=== PATIENT | female | born 1975 | race African-American/Black ===

== ENCOUNTER → 2023-09-29 14:02 | Outpatient (REF) | payer BC, SELFPAY | LOC: DHCBC HW 14:02 | PROVIDERS: ATTENDING PHYSICIAN Internal Medicine Cardiovascular Disease; FAMILY PHYSICIAN Family Medicine | DX: I10 Essential (primary) hypertension (principal) | CPT/HCPCS: 93306 ==

== ENCOUNTER 2023-10-22 06:40 | Observation (INO) | payer BC, SELFPAY ==
[2023-10-21 21:58] VITALS: BP 149/101
[2023-10-21 22:13] LABS: Glucose - Point of Care 80 mg/dl (70-99)
[2023-10-21 22:19] LABS: % Basophils 0.7 % (0-2); % Eosinophils 0.8 % (0-6); % Immature Granulocytes 0.3 % (0-0.5); % Lymphocytes 24.7 % (20.5-51.1); % Monocytes 7.7 % (1.7-9.3); % Neutrophils 65.8 % (42.2-75.2); Absolute Basophils 0.1 10^3/uL (0-0.2); Absolute Eosinophils 0.1 10^3/uL (0-0.7); Absolute Lymphocytes 1.8 10^3/uL (1.2-3.4); Absolute Monocytes 0.6 10^3/uL (0.1-0.6); Absolute Neutrophils 4.7 10^3/uL (1.4-6.5); Hematocrit 38.2 % (37.0-47.0); Mean Corpuscular Hgb 27.1 pg (27.0-31.0); Mean Corpuscular Volume 79.7 fL (81.0-99.0); Mean Platelet Volume 10.6 fL (7.4-10.4); Nucleated Red Blood Cells % 0 %; Platelet Count 538 10^3/uL (130-400); Red Blood Cell Count 4.79 10^6/uL (4.20-5.40); Red Cell Dist. Width 13.4 % (11.5-14.5); White Blood Cell Count 7.2 10^3/uL (4.8-10.8)
[2023-10-21 22:48] LABS: ALT (SGPT) 19 U/L (0-35); AST (SGOT) 22 U/L (14-36); Alkaline Phosphatase 109 U/L (38-126); Blood Urea Nitrogen 23 mg/dl (7-17); Calcium 10.2 mg/dl (8.4-10.2); Carbon Dioxide 23 mmol/L (22-30); Chloride 103 mmol/L (98-107); Glucose 82 mg/dl (70-99); Potassium 4.4 mmol/L (3.5-5.1); Sodium 137 mmol/L (135-145); Total Bilirubin 0.7 mg/dl (0.2-1.3); Total Protein 9.4 g/dl (6.3-8.2); Troponin I < 0.012 ng/ml; eGFR 31.77
[2023-10-22] VITALS (14 sets, daily range): BP systolic 143–168; BP diastolic 61–136; BMI 31.4
[2023-10-22] MEDS: ZOFRAN 4 MG IV (01:40)
--- NOTE | 2023-10-22 02:58 | ED.GENMED ---
History of Present Illness
General
Chief Complaint: Weakness
Source: patient and family
Exam Limitations: none
Time Seen by Provider: 10/22/23 02:43
Nursing documentation reviewed up to this point in time: agreed with
Travel History
Have you had any contact with someone who has COVID-19?: No
Do you have any symptoms of coronavirus? Fever > 100 degrees, chills, cough, shortness of breath, sore throat, loss of taste or smell, muscle aches, or headache?: No
History of Present Illness
History of Present Illness:
Pleasant 48-year-old female that presents with shaking and sweating for the last month. For the last 3 months patient has been unable to eat normally. She has had a 30 pound weight loss and renal insufficiency. Patient states that today she
developed shaking. Denies fever, chills, nausea or vomiting. Reports no chest pain or shortness of breath. She has been to GI who is in the midst of a workup. She has been to cardiology and had a normal stress test. She denies any other
symptoms.
Past History
Past History
ED Past Medical History: Asthma, HTN and Other (kidney stones)
ED Past Surgical History: Other (hysterectomy)
Patient has exhibited threatening behavior?: No
Social History
Tobacco: Non-smoker
Alcohol: None
Personal: Single
Living: with family
Employment: Not employed
Family History
Family History: Hypertension
Review of Systems
Review of Systems
Allergies reviewed?: Yes
Other source history: family
All Other Systems: ROS reviewed and negative except as documented in HPI and ROS
Constitutional: Reports fatigue
EENT: Reports no symptoms
Respiratory: Reports no symptoms
Cardiac: Reports no symptoms
ABD/GI: Reports no symptoms
: Reports no symptoms
Musculoskeletal: Reports no symptoms
Skin: Reports no symptoms
Neurological: Reports other (Shaking)
Endocrine: Reports no symptoms
Hematologic/Lymphatic: Reports no symptoms
Psychiatric: Reports anxiety
Phy Exam
General Physical Exam
General Presentation: well appearing and no apparent distress
General Skin: warm and dry
General Habitus: normal
General Mental: alert
General Hydration: appears well hydrated
ENT Exam
ENT Exam: EOMI, pharynx normal, neck supple and normocephalic
Eye Exam
Eye Exam: PERRL, cornea clear and conjunctiva normal
Cardiovascular Exam
Cardiovascular Exam: regular rate/rhythm, no edema, no murmur and normal peripheral pulses
Pulmonary Exam
Pulmonary Exam: lungs clear, no respiratory distress, no rales, no crackles, no rhonchi, no stridor, no wheezing and no cough
Gastrointestinal Exam
Gastrointestinal Exam: normal bowel sounds, non tender, soft, no organomegaly, no pulsatile mass and non distended
Neurological Exam
Neurological Exam: alert, oriented x3, no motor deficits and speech normal
Musculoskeletal Exam
Musculoskeletal Exam: full ROM and no edema
Skin Exam
Skin Exam: normal color, warm/dry, no rash and no petechia
Psychiatric Exam
Psychiatric Exam: anxious
Course
Orders/Labs/Results
Orders:
Orders
10/21/23 21:37
Electrocardiogram (*1) Urgent
Reason for Study: Chest Pain
EKG- Treatment ONCE
10/21/23 22:13
Complete Blood Count/With Diff Urgent
Comprehensive Metabolic Panel Urgent
Troponin I Urgent
10/22/23 01:39
Ondansetron Injectable [Zofran] 4 mg .ROUTE .STK-MED ONE
10/22/23 01:40
Ondansetron Injectable [Zofran] 4 mg IV NOW STA
10/22/23 02:56
Diphenhydramine [Benadryl] 50 mg PO NOW STA
10/22/23 03:00
0.9% Sodium Chloride 500 ml [Nss] 500 ml IV BOLUS
10/22/23 04:52
CT Head W/o Iv Contrast Urgent
Comment:
Reason For Exam: ams
10/22/23 Breakfast
Regular
At Your Request: Full Participation
10/22/23 06:22
Add On- LAB Routine
Tests Added?: vitamin B12, TSH
Admit/Transfer Patient As Directed
Co-Sign Provider:
Level of Care: Observation services
Assign to:: Telemetry
Physician / Group: Cristina Foster
Diagnosis: altered mental status, TAVIA
Reason for Telemetry: Chest Pain syndromes
Date to Stop Telemetry: 10/24/23
Time to Stop Telemetry: 11:00
10/22/23 06:23
Code Status As Directed
Resuscitation Status: Full Code
10/22/23 06:26
Add On- LAB Routine
Tests Added?: vitamin d-oh
10/22/23 06:49
0.9% Sodium Chloride 1000 ml [Nss] 1,000 ml IV 80 mls/hr
Acetaminophen [Tylenol] 650 mg PO Q4HPRN PRN
Polyethylene Glycol Powder [Miralax] 17 grams PO DAILYPRN PRN
10/22/23 06:49
Activity As Directed
Activity Level: As Tolerated
Neurological Checks As Directed
Frequency: Per unit guidelines
Pneumatic Compression Sleeves As Directed
Type: Knee high
Vital Signs As Directed
Frequency: Per unit guidelines
DX Deep Vein Thrombosis Video Routine
10/22/23 07:30
Sucralfate [Carafate] 1 gram PO ACHS
10/22/23 07:31
Basic Metabolic Panel Routine
Magnesium Routine
10/22/23 08:00
Bisacodyl [Dulcolax] 10 mg RECTAL [id number] PRN
Metoprolol [Lopressor] 25 mg PO BID
Pantoprazole [Protonix] 40 mg PO DAILY
Rosuvastatin Calcium [Crestor] 40 mg PO DAILY
10/22/23 22:00
Cetirizine HCl [Zyrtec] 10 mg PO HS
Clonidine [Catapres] 0.1 mg PO HS
10/23/23 07:15
Complete Blood Count/No Diff IN AM
10/24/23 11:00
DC Protocol for Telemetry ONCE
Abnormal Lab Results
10/21/23
22:13
MCV 79.7 L fL
(81.0-99.0)
Plt Count 538 H 10^3/uL
(130-400)
MPV 10.6 H fL
(7.4-10.4)
BUN 23 H mg/dl
(7-17)
Creatinine 1.9 H mg/dL
(0.6-1.0)
Total Protein 9.4 H g/dl
(6.3-8.2)
10/21/23 22:13
10/21/23 22:13
Vital Signs
Initial and Last Documented VS:
Initial Vital Signs
Temp Pulse Resp BP Pulse Ox
98.9 F 86 20 149/101 100
10/21/23 21:58 10/21/23 21:58 10/21/23 21:58 10/21/23 21:58 10/21/23 21:58
Last Documented Vital Signs
Temp Pulse Resp BP Pulse Ox
98.4 F 50 18 155/84 99
10/23/23 11:10 10/23/23 11:10 10/23/23 11:10 10/23/23 11:10 10/23/23 11:10
*Critical Care Note
Total Time (30-74mins, 75-104mins- exclusive of procedures): Not Applicable
Update Note
Update Note:
48-year-old female with what appears to be brief manic episode. She began to shake and form pressured speech. She eventually got 'tongue-tied' and stopped speaking. Patient reports recent weight loss. I do not feel that she is able to care for
herself at home in this current condition.
CT head negative for acute findings
ED Attending Note
-
Portions of this chart may have been created with voice recognition software.� Occasional wrong word or��sound alike� substitutions may have occurred due to the inherent limitations of voice recognition software.
Discharge Plan
Departure
Condition: Fair
Interventions
Interventions:
*Risk Screen - Suicide Last Done: 10/21/23 21:58
*General Assessment Last Done: 10/21/23 21:58
*Neglect/Abuse Screening Last Done: 10/21/23 21:58
ED- Fall Risk Assessment Last Done: 10/21/23 21:58
*ED COVID-19 Vaccine History Last Done: 10/21/23 21:58
*Nursing Disposition Last Done: 10/22/23 14:02
ED- Cardiac Assessment Last Done: 10/22/23 00:45
ED- Neurological Assessment Last Done: 10/22/23 00:45
ED- Pulmonary Assessment Last Done: 10/22/23 00:48
[2023-10-22] MEDS: BENADRYL 50 MG PO (03:02)
[2023-10-22] MEDS: NSS 500 IV (03:04)
--- NOTE | 2023-10-22 06:05 | HPS.HSE ---
Family Physician
-
Family Physician: Malinda Melgar
Chief Complaint
-
intermittent episodes of shaking
History of Present Illness
Ms. Carmen Delong is a 48 yo woman with hx HTN, asthma who presents to the ER with episodes of shaking. Patient states over the past two days she has had several brief episodes where 'I feel like I have extra energy in my body' and she has
uncontrollable shaking. She is conscious during these episodes, no falls. No fevers/chills. Denies increased warmth or flushing. Episodes haven't happened in past. No new medications. States she vapes daily otherwise no other drug use.
Patient has had a 30 pound weight loss over past month and has been eating less. She states she has no appetite. Denies abdominal pain. She is undergoing work-up with GI. She has had a normal stress test with cardiology.
No cough. No chest pain. No vomiting. No diarrhea. No rash. No LE swelling.
Medical History
Past Medical History
Past Medical History: Reports Other (HTN, asthma)
Past Surgical History: Reports None
Social History
Tobacco: Non-smoker
Alcohol: Occasional
Drug: Marijuana
Family History
Family History: Not pertinent
Allergies / Home Medications
Allergies reflects when Allergies were last updated in [facility].
Home Medications with original date entered in [facility]
Allergy/Medication List:
Allergies
Allergy/AdvReac Type Severity Reaction Status Date / Time
No Known Drug Allergies Allergy Unknown Unknown Verified 10/21/23 21:57
raw vegetable Allergy Tongue Verified 10/21/23 21:57
Swelling
Home Medications
hydrocodone 5 mg-acetaminophen 325 mg tablet 1 tab PO Q4HPRN PRN severe pain #8 tabs 12/08/17
amlodipine 5 mg tablet 5 mg PO DAILY 03/02/18
losartan 100 mg-hydrochlorothiazide 25 mg tablet 1 ea PO DAILY 08/22/18
metoprolol tartrate 25 mg tablet 25 mg PO BID 03/02/18
ofloxacin 0.3 % eye drops (Ocuflox) 10 ml RIGHT EYE QID ##1 01/11/21
fluconazole 150 mg tablet (Diflucan) 150 mg PO DAILY PRN yeast infection #1 tab 11/22/22
levofloxacin 750 mg tablet 750 mg PO DAILY #7 tabs 11/22/22
metronidazole 500 mg tablet 500 mg PO TID #21 tabs 11/22/22
cetirizine 10 mg PO HS 10/22/23
clonidine 0.1 mg PO HS 10/22/23
esomeprazole sodium 40 mg PO DAILY 10/22/23
hydrochlorothiazide 25 mg PO HS 10/22/23
losartan 100 mg PO DAILY 10/22/23
magnesium 250 mg PO HS 10/22/23
metoprolol tartrate 25 mg PO BID 10/22/23
rosuvastatin 60 mg PO DAILY 10/22/23
sucralfate 1 g PO DIRECTED 10/22/23
*med rec not confirmed
Review of Systems
-
History Source: Patient
A 12 point ROS was completed and negative except as noted: Yes
Physical Exam
Vital Signs
Vital Signs
Temp Pulse Resp BP Pulse Ox
98.9 F 74 17 153/97 91
10/21/23 21:58 10/22/23 04:30 10/22/23 04:30 10/22/23 04:00 10/22/23 04:17
Physical Exam
General: No Apparent Distress and Conversant
HEENT: PERRLA
Respiratory: Clear; No Wheezes
Cardiac: S1/S2 and Regular Rhythm
GI: Soft and Non Tender
Musculoskeletal: No Edema
Skin: Warm and Dry; No Rash
Neuro: AO x 3
Psych: Other (pressured speech, anxious )
Laboratory Results
-
10/21/23 22:13
10/21/23 22:13
Laboratory Results
Total Bilirubin 0.7 mg/dl (0.2-1.3) 10/21/23 22:13
AST 22 U/L (14-36) 10/21/23 22:13
ALT 19 U/L (0-35) 10/21/23 22:13
Alkaline Phosphatase 109 U/L (38-126) 10/21/23 22:13
Troponin I < 0.012 ng/ml 10/21/23 22:13
Data Reviewed
-
Diagnostic Radiology: Report Reviewed by me
Lab Data: Labs Reviewed by me
Impression/Plan
-
Ms. Carmen Delong is a 48 yo woman with hx HTN, asthma who presents to the ER with episodes of shaking.
Triage VS: T 98.9, P 86, RR 20, BP 149/101, SpO2 100%
LABS: WBC 7.2, Hg 13.0, PLT 538, Na 137, K+ 4.4, BUN 23, Cr 1.9, Glucose 82, T. Bili 0.7, AST 22, ALT [address]
MAR: IVF, Benadryl Zofran
Altered Mental Status
Episodic Shaking
Pressure speech
-unclear presentation, concern for manic episode with pressured speech and patient's description of events. She denies fevers or flushing. Story not suggestive of seizure (and witnessed by ER physician)
-will monitor on telemetry to rule out arrhythmia that may be leading to anxiety?
-F/U TSH, B12
-psychiatry consulted
HTN
-MILLER HEAD Metoprolol
-MILLER HEAD Clonidine - consider increasing dose
-hold MILLER HEAD Losartan
-hold MILLER HEAD HCTZ
Acute Kidney Injury
-hold MILLER HEAD Losartan
-additional 1L IVF NS @ 80
HLD
-MILLER HEAD Rosuvastatin - decreased to 40mg
Weight Loss
Decreased appetite
-MILLER HEAD PPI
-patient has follow up with GI next month
-she is ordered for a regular diet but if it is seen that she has poor PO intake may consider inpatient GI consult this admit
DVT PPx SCD
FULL CODE
[2023-10-22 07:30] LABS: Urine Albumin 2+ (Neg - Trace); Urine Bilirubin 1+ (Negative); Urine Character Clear (Clear); Urine Color Yellow; Urine Glucose Negative (Negative); Urine Ketone 1+ (Negative); Urine Leukocyte Trace (Negative); Urine Nitrite Negative (Negative); Urine Occult Blood Negative (Negative); Urine Specific Gravity 1.015 (<1.030); Urine Urobilinogen Negative (Neg - 1+)
[2023-10-22 07:39] LABS: Urine Squamous Cell >30 /LPF (Few)
[2023-10-22 07:40] LABS: Urine Red Blood Cell 0-2 /HPF (0-2); Urine White Cell 0-2 /HPF (0-5)
[2023-10-22 07:42] LABS: Urine Mucus Few
[2023-10-22 07:43] LABS: Urine Granular Cast 0-2 /LPF (0); Urine Hyaline Cast >15 /LPF (0-2)
[2023-10-22 07:58] LABS: Amphetamines Negative (Negative); Barbiturates Negative (Negative); Benzodiazepines Negative (Negative); Buprenorphine Negative (Negative); Cocaine Negative (Negative); Marijuana Positive (Negative); Methadone Negative (Negative); Methamphetamines Negative (Negative); Opiates Negative (Negative); Phencyclidine Negative (Negative); Tricyclic Antidepressants Negative (Negative)
[2023-10-22 08:13] LABS: Urine Bacteria Moderate (Negative)
[2023-10-22 08:15] LABS: Blood Urea Nitrogen 23 mg/dl (7-17); Calcium 9.5 mg/dl (8.4-10.2); Carbon Dioxide 18 mmol/L (22-30); Chloride 107 mmol/L (98-107); Estimated Creatinine Clearance 39 ml/min; Glucose 87 mg/dl (70-99); Potassium 4.4 mmol/L (3.5-5.1); Sodium 135 mmol/L (135-145)
[2023-10-22] MEDS: NSS 1000 IV (08:31)
[2023-10-22] MEDS: PROTONIX 40 MG PO (08:32)
[2023-10-22] MEDS: CRESTOR 40 MG PO (08:32)
[2023-10-22] MEDS: LOPRESSOR 25 MG PO ×2 (08:32→21:05)
[2023-10-22] MEDS: CARAFATE PO ×3 (08:33→22:06)
[2023-10-22 09:04] LABS: TSH 1.53 uIU/ml (0.47-4.68)
[2023-10-22 09:23] LABS: Vitamin B12 806 pg/ml (239-931)
--- NOTE | 2023-10-22 11:31 | CM ---
CM reviewed medical records. OBS letter given and explained
Patient confirmed demographics. Patient lives with independently. Patient denied history of VN, SNF or DME. Patient is active with her PCP. Patient uses [facility] for medication services.
Patient appeared anxious and exhibited pressured speech. Patient was difficult to direct, but remained pleasant and thankful for care she is receiving. CM will continue to remain available.
PLAN: Home no needs.
--- NOTE | 2023-10-22 11:47 | CON.MD ---
Consultation - Medical
-
patient seen chart reviewed. patient is a 48 year old woman who comes to with cc shaking, sweating decreased appetite and weight loss over the past several months. she is seeing her pcp dr hdz who has been pursuing a GI workup. the patient
was noted to be very talkative and the question raised as to whether she is bipolar. she admits she is an extremely energetic person who does not need to sleep very much. she can multitask and accomplish a lot in the course of some hours. she
denies racing thoughts however. she is not depressed. she has never been suicidal. she can enjoy her life. she has been treated in the past for anxiety and had some episodes of panic years ago rx with klonopin but she does not liken what she is
experiencing now to those episodes which have not recurred in years. she is an avid cook and the experience of no appetite is bizarre for her. she is overweight. she reports the 'shaking' she experienced felt like 'a seizure' although she did not
lose consciousness or continence. she did not bite her tongue. she said it occurred earlier today in the ER when she tried to get to the bathroom.
past psych hx see above
medical hx patient w hx thn migraine gerd benign breast lum 'axillary lumps' listed in external med summary 30 lb weight loss hx fibroids w pipe buffer surgery knee surgery bp 159/[address] no acute abn b12 tsh nl vit d low ecg w nl qtc
ketones bili elev in ua platelets high mcv sl dec bun 1.8 cr 23
family hx denied for psych and d and a but d has an undx illness that has caused her to need walker to walk and she is only 27 d also hypothyroid mother had guilherme lucas and had many neurosurgeries
substance abuse denied but noted tox scre + for cannabis
social patient is a retired [employer]. 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 she has three kids two grands supportive denies hx abuse loves to cook.
mse alert ox3 very loquacious rather pressured speech thought process was a bit curcumstantial no psychosis mood is euthymic affect appropriate never any hx si aver intelligence ins judgment seem ok
dx r/o bipolar but i don't see it as a cause of her sx and do not feel rx with meds necessary at present
recommendations. while patient presentation does seem to suggest possibly underlying bipolar i am in no way certain that she has bipolar disorder. she may just be one of those people who are very high energy multitask do not need a lot of sleep
etc. i don't see her as needing to medicate her energy at p resent. i do feel there is enough in the way of sx to suggest need for endocrine, collagen vascular disease workup. GI workup has it seems already begun. would consider neuro workup if
no other dx. d has some illness that seems to defy dx as well. psych will check in with her tomorrwo.
--- NOTE | 2023-10-22 13:29 | W.PN.UPDATE ---
Update Note
Progress Note Update
Non-billable addendum
48 y/o F admitted with TAVIA (but hx of CKD), also chronic weight loss, poor appetite, early satiety - being evaluated outpatient with GI planned scope next month. Recently saw Cardiology and negative stress.
Evaluated by psych for pressured speech, sweats - no concern from psych for bipolar d/o. Patient states this is her personality. Denies any drug use besides occasional MJ, no new pharmaceutical meds.
Assessment:
Altered Mental Status/Episodic Shaking/Pressure speech
- psych evaluated, no concern for bipolar disorder
- TSH, B12 ok
3 month history of weight loss, FTT
- poor appetite, early satiety
- if ok with renal, plan for CT C/A/P with IV contrast
- GI consulted given symptoms of heartburn as well
- reg diet, encourage intake
Essential HTN
- continue Clonidine/Metoprolol/Amlodipine
- hold HCTZ/Losartan
TAVIA on CKD stage 3b
- hold HCTZ/ARB
- continue IVF
- Nephrology evaluation
HLD - statin
DVT ppx: SCDs
Code: Full
[2023-10-22] MEDS: LR 1000 IV (14:46)
--- NOTE | 2023-10-22 15:27 | TRANSFER ---
Pt transferred from ED to 332 and walked from wheelchair to bed. IVF running at 100ml/hr. Pt oriented to room, call guillen within reach. Admission complete in ED. Assessment completed by this RN.
--- NOTE | 2023-10-22 15:58 | CON.GI ---
Addendum entered and electronically signed by Courtney Malone Do, MD 10/22/23 17:36:
I saw and examined the patient.
The INSURANCE SALES AGENT's note was reviewed and I agree with the note.
Comment: Carmen is a 48yo W with h/o asthma and HTN who presents with acute on chronic kidney injury in setting of poor PO intake. She also had 35lb wt loss with early satiety. Vitals stable, obese, NTTP, NABS. Labs reviewed without anemia Cr 1.9.
Imaging pending
Impression
- Unintentional wt loss and early satiety
Suspect hyperemesis cannabis, PUD or gastritis
- HTN
- Asthma
- Obesity
- CKD
Recommendations
- Agree with CTCAP
- PPI IV
- Counseled on cannabis cessation
- Agree with EGD/colon and await CT to decide inpatient vs outpatient basis
Will follow with you
Original Note:
Consultation
-
Date/Time Consultation Requested: 10/22/23 1425
Date/Time Consultation Performed: 10/22/23 1600
Requesting Provider: Argelia Lang MD
Performing Provider: KIRILL Hawthorne, Courtney Buck MD
Reason for Consultation: wt loss
Medical History
Chief Complaint / HPI
Chief Complaint: weight loss
History of Present Illness:
Pt is a 48yo with hx asthma, HTN, renal stones, prior diverticulitis with inability to eat normal and noted shakiness and sweats. She has had 37 lbs wt loss. Pt was noted weight of 100 kg in 11/2022 now 83 kg and also noted renal insufficiency.
On admission noted with WBC 7.2, hbg 13, hct 38.2, platelets 538, Na 135, K 4.4, Cl 107, Co2 18, BUN 23, Creat 1.8, glucose 87. Tox screen + Marijuana. Pt states she began with symptoms of wt loss about 3 months ago. She noted about 1-2 months
ago burning in abdomen. She did seen by PCP with higher dose Nexium added then DINA and Carafate ordered with plan for EGD in November. She then noted 2 episode of shakiness and sweats over last 2 weeks and presents for evaluation. No NSAID use.
Pt again admits to nausea, abdominal burning, wt loss 37 lbs, early satiety, shakiness, sweats. Some constipation but note eating less. but denies vomiting, hematemesis, diarrhea,or bleeding. No hx EGD possible colonoscopy years ago.
grandmother with stomach and colon CA.
Past Medical History
Past Medical History: Asthma, HTN and Other (kidney stones, diverticulitis 2022 )
Past Surgical History: Gynecological (hysterectomy)
Social History
Tobacco: Vaping (several years )
Alcohol: Occasional (only recently on [employer])
Drug: Marijuana (gummies to assist for sleep)
Personal:
Living: Alone
Employment: Disabled
Family History
Family History: Other (grandmother with stomach and colon CA)
Allergies / Home Medications
Allergy/AdvReac Type Severity Reaction Status Date / Time
No Known Drug Allergies Allergy Unknown Unknown Verified 10/21/23 21:57
raw vegetable Allergy Tongue Verified 10/21/23 21:57
Swelling
�Medication �Instructions �Recorded
amlodipine 5 mg tablet (Norvasc) 5 mg PO DAILY 10/22/23
cetirizine 10 mg tablet (Zyrtec) 10 mg PO QPM 10/22/23
clonidine HCl 0.1 mg tablet 0.1 mg PO HS 10/22/23
esomeprazole magnesium 40 mg 40 mg PO DAILY 10/22/23
capsule,delayed release (Nexium)
hydrochlorothiazide 25 mg tablet 25 mg PO QPM 10/22/23
losartan 100 mg tablet 100 mg PO DAILY 10/22/23
magnesium oxide 250 mg PO QPM 10/22/23
metoprolol tartrate 25 mg tablet 25 mg PO BID 10/22/23
rosuvastatin 10 mg tablet (Crestor) 10 mg PO QPM 10/22/23
sucralfate 1 gram tablet (Carafate) 1 g PO ACHS 10/22/23
Review of Systems
-
History Source: Patient and Family
Constitutional: Reports Weight Loss, Fatigue and Other (sweats )
EENT: Reports No Symptoms
Respiratory: Reports No Symptoms
Cardiac: Reports No Symptoms
Abdomen/GI: Reports Abdominal Pain, Nausea and Other (early satiety )
: Reports No Symptoms
Musculoskeletal: Reports No Symptoms
Skin: Reports No Symptoms
Neurological: Reports Weakness
Endocrine: Reports No Symptoms
Hematologic/Lymphatic: Reports No Symptoms
Vital Signs
Temp Pulse Resp BP Pulse Ox
98.4 F 82 24 143/74 100
10/22/23 11:24 10/22/23 13:00 10/22/23 13:00 10/22/23 11:24 10/22/23 11:24
Physical Exam
Exam
General: Well Developed and Well Nourished
HEENT: Normocephalic and Anicteric
Respiratory: Clear
Cardiac: Regular Rhythm
GI: Soft, Non Distended and Tender (mild mid abdominal pain )
Musculoskeletal: No Clubbing and No Cyanosis
Skin: Warm and Dry
Neuro: Awake, Alert and AO x 3
Psych: Calm
Results
WBC 7.2 10^3/uL (4.8-10.8) 10/21/23 22:13
Hgb 13.0 g/dL (12.0-16.0) 10/21/23 22:13
Hct 38.2 % (37.0-47.0) 10/21/23 22:13
MCV 79.7 fL (81.0-99.0) L 10/21/23 22:13
Plt Count 538 10^3/uL (130-400) H 10/21/23 22:13
Absolute Neuts (auto) 4.7 10^3/uL (1.4-6.5) 10/21/23 22:13
Sodium 135 mmol/L (135-145) 10/22/23 07:31
Potassium 4.4 mmol/L (3.5-5.1) 10/22/23 07:31
Chloride 107 mmol/L (98-107) 10/22/23 07:31
Carbon Dioxide 18 mmol/L (22-30) L 10/22/23 07:31
BUN 23 mg/dl (7-17) H 10/22/23 07:31
Creatinine 1.8 mg/dL (0.6-1.0) H 10/22/23 07:31
Calcium 9.5 mg/dl (8.4-10.2) 10/22/23 07:31
Total Bilirubin 0.7 mg/dl (0.2-1.3) 10/21/23 22:13
AST 22 U/L (14-36) 10/21/23 22:13
ALT 19 U/L (0-35) 10/21/23 22:13
Alkaline Phosphatase 109 U/L (38-126) 10/21/23 22:13
Diagnostic Image Results:
10/22/23 CT Chest/abd/pelvis pending
10/22/23 HCT neg
11/2022 CTa/p
1. Acute uncomplicated diverticulitis of the proximal sigmoid colon.
Prior GI Procedures:
EGD: none
Colonoscopy: ? years ago
Assessment / Plan
-
Pt is a 48yo with hx asthma, HTN, renal stones prior diverticulitis with inability to eat normal and noted shakiness and sweats. She has had 37 lbs wt loss. Pt was noted weight of 100 kg in 11/2022 now 83 kg and also noted renal insufficiency.
On admission noted with WBC 7.2, hbg 13, hct 38.2, platelets 538, Na 135, K 4.4, Cl 107, Co2 18, BUN 23, Creat 1.8, glucose 87. Tox screen + Marijuana. Pt states she began with symptoms of wt loss about 3 months ago. She noted about 1-2 months
ago burning in abdomen. She did seen by PCP with higher dose Nexium added then DINA and Carafate ordered with plan for EGD in November. She then noted 2 episode of shakiness and sweats over last 2 weeks and presents for evaluation. No NSAID use.
-wt loss/early satiety
-sweats/shakiness
-nausea/abdominal burning
-TAVIA on admission
other medical problems:
-asthma
-HTN
-renal stones
-+ marijuana use
-grandmother with stomach and colon CA
PLAN:
Etiology of nausea, early satiety and wt loss unclear-- PUD, underlying mass, vs other
agree with CT A/p
if neg will need EGD and eventual colonoscopy IP vs OP pending Ct results
cont PPI and Carafate though no improvement with recent outpatient therapy
HCT stable
family updated at bedside
-
-
Thank you for consultation and allowing me to participate in the patient's care. Please call the process control programmer GI physician during the after hours with any questions or concerns.
[2023-10-22] MEDS: CARAFATE 1 GRAM PO (17:22)
--- NOTE | 2023-10-22 17:36 | W.PN.UPDATE ---
Update Note
Progress Note Update
Billing purposes
[2023-10-22] MEDS: ZYRTEC 10 MG PO (21:06)
[2023-10-22] MEDS: CATAPRES 0.100000000000000006 MG PO (21:06)
[2023-10-23] MEDS: LR 1000 IV ×2 (02:47→12:41)
[2023-10-23 03:00] VITALS: BP 130/72
[2023-10-23 07:25] VITALS: BP 146/99
[2023-10-23] MEDS: CRESTOR 40 MG PO (07:55)
[2023-10-23] MEDS: LOPRESSOR 25 MG PO (07:55)
[2023-10-23] MEDS: PROTONIX 40 MG PO (07:55)
[2023-10-23] MEDS: NORVASC 5 MG PO (07:55)
[2023-10-23 08:44] LABS: Hematocrit 30.5 % (37.0-47.0); Mean Corp Hgb Conc. 33.4 g/dL (33.0-37.0); Mean Corpuscular Hgb 26.9 pg (27.0-31.0); Mean Corpuscular Volume 80.5 fL (81.0-99.0); Mean Platelet Volume 11.5 fL (7.4-10.4); Platelet Count 405 10^3/uL (130-400); Red Blood Cell Count 3.79 10^6/uL (4.20-5.40); Red Cell Dist. Width 13.2 % (11.5-14.5); White Blood Cell Count 9.1 10^3/uL (4.8-10.8)
[2023-10-23] MEDS: OMNIPAQUE 50 ML PO (09:00)
[2023-10-23] MEDS: CARAFATE PO ×2 (09:02→22:52)
[2023-10-23 09:13] LABS: Hemoglobin 10.2 g/dL (12.0-16.0)
[2023-10-23] MEDS: ZOFRAN 4 MG IV (09:44)
--- NOTE | 2023-10-23 09:46 | W.PN.HOSP.TC ---
Today's Communication/Plan
-
continue IVF
prn Zofran
for CT C/A/P
Assessment / Plan
Assessment / Plan
Assessment:
Altered Mental Status/Episodic Shaking/Pressure speech
- psych evaluated, no concern for bipolar disorder
- TSH, B12 ok
3 month history of weight loss, FTT
- poor appetite, early satiety
- for CT C/A/P with IV contrast; d/w her OP Nephrology team; started on fluid prophylaxis
- GI consulted given symptoms of heartburn as well - possible scope exams pending CT result
- PPI continues
- reg diet, encourage intake
Essential HTN
- continue Clonidine/Metoprolol/Amlodipine
- hold HCTZ/Losartan
TAVIA on CKD stage 3b
- hold HCTZ/ARB
- continue IVF
HLD - statin
Thrombocytosis
- monitor
DVT ppx: SCDs
Code: Full
Anticipated Discharge: 24 - 48 hours
Subjective/Interval History
-
Date of Service: October 23, 2023
nauseous this morning in context of trying to drink contrast, asking for Zofran
denies any new complaints
for CT today
Objective Data
-
Labs:
Laboratory Results
10/23/23
07:15
WBC 9.1
Hgb 10.2 L D
Hct 30.5 L
Plt Count 405 H D
Sodium Pending
Potassium Pending
Chloride Pending
Carbon Dioxide Pending
BUN Pending
Creatinine Pending
Glucose Pending
Calcium Pending
Vital Signs:
Vital Signs
Temp Pulse Resp BP Pulse Ox
98.9 F 66 18 146/99 100
10/23/23 07:25 10/23/23 07:25 10/23/23 07:25 10/23/23 07:25 10/23/23 07:25
I&O
10/22/23 10/23/23 10/24/23
06:59 06:59 06:59
Intake Total 980 / 980 1979
Balance 980 / 980 1979
Physical Exam
-
General: No Apparent Distress
HEENT: Normocephalic and Atraumatic
Respiratory: Negative Wheezes or Rales
Cardiac: Regular Rhythm and S1/S2
GI: Soft
Musculoskeletal: No Edema
Neuro: AO x 3
Hematologic / Lymphatic: No Lymphadenopathy
Psych: Calm
Data Reviewed
-
Total Time Spent with Patient (in minutes): 42
Labs: Labs Reviewed by me
--- NOTE | 2023-10-23 10:01 | W.PN.UPDATE ---
Update Note
Progress Note Update
Psychiatry follow up for possible bipolar disorder. chart reviewed. Seen by Dr. Coronado for initial consult yesterday. Patient surprised to see me today. Denies any prior mental health treatment. Dr. Devine was the first psychiatrist she has ever seen.
States she functions well and has always run on little sleep and high energy. She denies depressive or psychotic history.
MSE- good eye contact. fluent rapid speech (but interruptible). logical and goal directed. Bright affect. Denies SI/HI/AVH. fully oriented. fair I/J.
A/P- If this were a true bipolar I'd imagine she would have had need for some psychiatric intervention by now. Would not start psychiatric medications at this time. Continue medical work up. Psychiatry will sign off. Please call team with additional
questions or concerns.
[2023-10-23 10:41] LABS: Blood Urea Nitrogen 18 mg/dl (7-17); Calcium 8.9 mg/dl (8.4-10.2); Carbon Dioxide 19 mmol/L (22-30); Chloride 106 mmol/L (98-107); Estimated Creatinine Clearance 50 ml/min; Glucose 71 mg/dl (70-99); Potassium 4.4 mmol/L (3.5-5.1); Sodium 134 mmol/L (135-145); eGFR 45.83
--- NOTE | 2023-10-23 11:04 | W.PN.GI.CBS2 ---
Today's Communication / Plan
-
Await CT CAP
C/w PPI
Add on iron panel, vit B12 and folate
Will follow with you
Assessment / Plan
-
Pt is a 48yo with hx asthma, HTN, renal stones prior diverticulitis with inability to eat normal and noted shakiness and sweats. She has had 37 lbs wt loss. Pt was noted weight of 100 kg in 11/2022 now 83 kg and also noted renal insufficiency.
On admission noted with WBC 7.2, hbg 13, hct 38.2, platelets 538, Na 135, K 4.4, Cl 107, Co2 18, BUN 23, Creat 1.8, glucose 87. Tox screen + Marijuana. Pt states she began with symptoms of wt loss about 3 months ago. She noted about 1-2 months
ago burning in abdomen. She did seen by PCP with higher dose Nexium added then DINA and Carafate ordered with plan for EGD in November. She then noted 2 episode of shakiness and sweats over last 2 weeks and presents for evaluation. No NSAID use.
Impression
-wt loss/early satiety
-sweats/shakiness
-anemia
-nausea/abdominal burning
-TAVIA on admission
-asthma
-HTN
-renal stones
-+ marijuana use
-grandmother with stomach and colon CA
Plan
- Await results of CTCAP
- Add on iron panel, vit B12 and folate
- Ok to resume diet after above
- Appreciate pysch recs
Will continue to follow with you
Subjective
Subjective
Date of Service: October 23, 2023
She is watching TV. Tolerating oral contrast for planned CTCAP later day. Denies abd pain or vomiting
Objective
Data Reviewed
Laboratory Data:
Laboratory Results
10/23/23 07:15
10/23/23 07:15
Laboratory Results
Magnesium 2.0 mg/dl (1.6-2.3) 10/22/23 07:31
Total Bilirubin 0.7 mg/dl (0.2-1.3) 10/21/23 22:13
AST 22 U/L (14-36) 10/21/23 22:13
ALT 19 U/L (0-35) 10/21/23 22:13
Alkaline Phosphatase 109 U/L (38-126) 10/21/23 22:13
Vital Signs and I&O:
Vital Signs
Temp Pulse Resp BP Pulse Ox
98.9 F 66 18 146/99 100
10/23/23 07:25 10/23/23 07:25 10/23/23 07:25 10/23/23 07:25 10/23/23 07:25
I&O
10/22/23 10/23/23 10/24/23
06:59 06:59 06:59
Intake Total 980 / 980 1979
Balance 980 / 980 1979
Physical Exam
Physical Exam
GEN: No acute distress, conversant, pleasant hyperactive
HEENT: anicteric, extraocular movements intact, clear oropharynx without exudates
GI: soft, obese non-distended, not tender to palpation, normal active bowel sounds, no hepatosplenomegaly
EXT: warm, well perfused, no edema bilaterally
NEURO: AAOx3, non-focal
[2023-10-23 11:10] VITALS: BP 155/84
[2023-10-23 11:36] LABS: Iron 85 ug/dl (37-170)
[2023-10-23 11:45] LABS: Percent Saturation 29 % (20-50); Total Iron Binding Capacity 285 ug/dl (265-497)
[2023-10-23] MEDS: CARAFATE 1 GRAM PO ×2 (12:23→16:26)
[2023-10-23 12:35] LABS: Ferritin 99.8 ng/ml (6.24-137)
[2023-10-23 13:07] LABS: Folate > 20.0 ng/ml (2.76-20); Vitamin B12 760 pg/ml (239-931)
[2023-10-23 15:00] VITALS: BP 131/89
[2023-10-23 20:03] VITALS: BP 136/70
[2023-10-23] MEDS: LOPRESSOR PO (20:08)
[2023-10-23] MEDS: ZYRTEC 10 MG PO (22:56)
[2023-10-23] MEDS: CATAPRES 0.100000000000000006 MG PO (22:56)
[2023-10-23 23:56] VITALS: BP 146/90
[2023-10-24] VITALS (7 sets, daily range): BP systolic 136–179; BP diastolic 68–108
[2023-10-24] MEDS: LR 1000 IV ×2 (00:52→10:16)
[2023-10-24] MEDS: CRESTOR 40 MG PO (08:35)
[2023-10-24] MEDS: CARAFATE 1 GRAM PO (08:35)
[2023-10-24] MEDS: PROTONIX 40 MG PO (08:35)
[2023-10-24] MEDS: NORVASC 5 MG PO (08:35)
[2023-10-24] MEDS: LOPRESSOR 25 MG PO ×2 (08:36→21:06)
[2023-10-24 08:55] LABS: Hematocrit 31.1 % (37.0-47.0); Hemoglobin 10.1 g/dL (12.0-16.0); Mean Corp Hgb Conc. 32.5 g/dL (33.0-37.0); Mean Corpuscular Hgb 26.6 pg (27.0-31.0); Mean Corpuscular Volume 81.8 fL (81.0-99.0); Mean Platelet Volume 11.1 fL (7.4-10.4); Platelet Count 354 10^3/uL (130-400); Red Cell Dist. Width 13.2 % (11.5-14.5); White Blood Cell Count 7.6 10^3/uL (4.8-10.8)
[2023-10-24 09:23] LABS: Blood Urea Nitrogen 13 mg/dl (7-17); Calcium 9.2 mg/dl (8.4-10.2); Carbon Dioxide 23 mmol/L (22-30); Chloride 105 mmol/L (98-107); Estimated Creatinine Clearance 54 ml/min; Glucose 78 mg/dl (70-99); Potassium 4.2 mmol/L (3.5-5.1); Sodium 134 mmol/L (135-145)
--- NOTE | 2023-10-24 10:32 | W.PN.GI.CBS2 ---
Today's Communication / Plan
-
EGD tomorrow
C/w PPI and changed carafate to liquid
Assessment / Plan
-
Pt is a 48yo with hx asthma, HTN, renal stones prior diverticulitis with inability to eat normal and noted shakiness and sweats. She has had 37 lbs wt loss. Pt was noted weight of 100 kg in 11/2022 now 83 kg and also noted renal insufficiency.
On admission noted with WBC 7.2, hbg 13, hct 38.2, platelets 538, Na 135, K 4.4, Cl 107, Co2 18, BUN 23, Creat 1.8, glucose 87. Tox screen + Marijuana. Pt states she began with symptoms of wt loss about 3 months ago. She noted about 1-2 months
ago burning in abdomen. She did seen by PCP with higher dose Nexium added then DINA and Carafate ordered with plan for EGD in November. She then noted 2 episode of shakiness and sweats over last 2 weeks and presents for evaluation. No NSAID use.
Impression
-wt loss/early satiety
-sweats/shakiness
-anemia
Iron panel suggestive of anemia of chronic disease
-nausea/abdominal burning
-TAVIA on admission
-asthma
-HTN
-renal stones
-+ marijuana use
-grandmother with stomach and colon CA
Plan
- Results of CTCAP w/ patient. No acute abnormal findings to account for symptoms and wt loss
- C/w diet and NPO at DE
- Recommend EGD tomorrow. If that is unremarkable anticipate d/c tomorrow
- Counseled on cannabis cessation as may be contributor to GI symptoms
- Appreciate pysch recs
- She is not able to tolerate prep for colonoscopy at this juncture but has it already scheduled OP basis at [facility] ([place])
Above d/w hospitalist. Will continue to follow with you
Subjective
Subjective
Date of Service: October 24, 2023
She continues to have no appetite. Early satiety. No vomiting or abd pain. No BM
Objective
Data Reviewed
Laboratory Data:
Laboratory Results
10/24/23 08:30
10/24/23 08:30
Laboratory Results
Magnesium 2.0 mg/dl (1.6-2.3) 10/22/23 07:31
Total Bilirubin 0.7 mg/dl (0.2-1.3) 10/21/23 22:13
AST 22 U/L (14-36) 10/21/23 22:13
ALT 19 U/L (0-35) 10/21/23 22:13
Alkaline Phosphatase 109 U/L (38-126) 10/21/23 22:13
Vital Signs and I&O:
Vital Signs
Temp Pulse Resp BP Pulse Ox
98.5 F 76 18 146/80 100
10/24/23 07:00 10/24/23 07:00 10/24/23 07:00 10/24/23 07:00 10/24/23 07:00
I&O
10/23/23 10/24/23 10/25/23
06:59 06:59 06:59
Intake Total 1979 3120 / 3120
Balance 1979 3120 / 3120
Physical Exam
Physical Exam
GEN: No acute distress, conversant, pleasant
HEENT: anicteric, extraocular movements intact, clear oropharynx without exudates
GI: soft, obese, non-distended, not tender to palpation, normal active bowel sounds, no hepatosplenomegaly
EXT: warm, well perfused, no edema bilaterally
NEURO: AAOx3, non-focal
--- NOTE | 2023-10-24 10:46 | W.PN.HOSP.TC ---
Today's Communication/Plan
-
EGD in AM
Assessment / Plan
Assessment / Plan
Assessment:
Altered Mental Status/Episodic Shaking/Pressure speech
- psych evaluated, no concern for bipolar disorder
- TSH, B12 ok
3 month history of weight loss, FTT
- poor appetite, early satiety
- for CT C/A/P negative
- GI Following; for EGD Wednesday
- PPI continues
- reg diet, encourage intake
Essential HTN
- continue Clonidine/Metoprolol/Amlodipine
- hold HCTZ/Losartan
TAVIA on CKD stage 3b
- hold HCTZ/Losartan
- continue IVF
HLD - statin
Thrombocytosis
- monitor
DVT ppx: SCDs
Code: Full
Anticipated Discharge: Within 24 hours
Subjective/Interval History
-
Date of Service: October 24, 2023
tolerating reg diet if receives Zofran
CT negative
for EGD tomorrow
Objective Data
-
Labs:
Laboratory Results
10/24/23
08:30
WBC 7.6
Hgb 10.1 L
Hct 31.1 L
Plt Count 354
Sodium 134 L
Potassium 4.2
Chloride 105
Carbon Dioxide 23
BUN 13
Creatinine 1.3 H
Glucose 78
Calcium 9.2
Vital Signs:
Vital Signs
Temp Pulse Resp BP Pulse Ox
98.5 F 76 18 146/80 100
10/24/23 07:00 10/24/23 07:00 10/24/23 07:00 10/24/23 07:00 10/24/23 07:00
I&O
10/23/23 10/24/23 10/25/23
06:59 06:59 06:59
Intake Total 1979 3120 / 3120
Balance 1979
Physical Exam
-
General: No Apparent Distress
HEENT: Normocephalic and Atraumatic
Respiratory: Negative Wheezes or Rales
Cardiac: Regular Rhythm and S1/S2
GI: Soft and Nontender
Genito-urinary: No Costovertebral Tender
Musculoskeletal: No Edema
Neuro: AO x 3
Hematologic / Lymphatic: No Lymphadenopathy
Psych: Calm
Data Reviewed
-
Total Time Spent with Patient (in minutes): 42
Labs: Labs Reviewed by me
[2023-10-24] MEDS: CARAFATE SUSPENSION 1 GM PO ×3 (11:25→21:06)
[2023-10-24] MEDS: ZYRTEC 10 MG PO (21:06)
[2023-10-24] MEDS: CATAPRES 0.100000000000000006 MG PO (21:06)
[2023-10-25 01:35] VITALS: BP 125/70
[2023-10-25 06:00] LABS: Hematocrit 30.8 % (37.0-47.0); Hemoglobin 10.4 g/dL (12.0-16.0); Mean Corp Hgb Conc. 33.8 g/dL (33.0-37.0); Mean Corpuscular Hgb 26.9 pg (27.0-31.0); Mean Corpuscular Volume 79.8 fL (81.0-99.0); Mean Platelet Volume 10.7 fL (7.4-10.4); Platelet Count 362 10^3/uL (130-400); Red Blood Cell Count 3.86 10^6/uL (4.20-5.40); Red Cell Dist. Width 13.2 % (11.5-14.5); White Blood Cell Count 7.6 10^3/uL (4.8-10.8)
[2023-10-25 06:23] LABS: Blood Urea Nitrogen 12 mg/dl (7-17); Carbon Dioxide 24 mmol/L (22-30); Chloride 105 mmol/L (98-107); Estimated Creatinine Clearance 54 ml/min; Glucose 87 mg/dl (70-99); Potassium 4.3 mmol/L (3.5-5.1); Sodium 135 mmol/L (135-145)
[2023-10-25 07:30] VITALS: BP 169/92
[2023-10-25] MEDS: CRESTOR 40 MG PO (09:45)
[2023-10-25] MEDS: LOPRESSOR 25 MG PO (09:45)
[2023-10-25] MEDS: NORVASC 5 MG PO (09:45)
[2023-10-25] MEDS: PROTONIX 40 MG PO (09:45)
[2023-10-25] MEDS: CARAFATE SUSPENSION 1 GM PO (09:45)
--- NOTE | 2023-10-25 10:39 | W.PN.HOSP.TC ---
Today's Communication/Plan
-
dc to home
Assessment / Plan
Assessment / Plan
Assessment:
Altered Mental Status/Episodic Shaking/Pressure speech
- psych evaluated, no concern for bipolar disorder
- TSH, B12 ok
3 month history of weight loss, FTT
- poor appetite, early satiety
- for CT C/A/P negative
- EGD with erythema in antrum, duodenum. no masses
- PPI continues
- reg diet, encourage intake
- OP GI f/u
Essential HTN
- continue Clonidine/Metoprolol/Amlodipine/HCTZ/Losartan
TAVIA on CKD stage 3b
- improved with IVF
- f/u Renal outpatient
HLD - statin
Thrombocytosis
- monitor
DVT ppx: SCDs
Code: Full
More than 30 minutes spent in discharge including
Final examination of the patient
Summarizing hospital stay
Instructions for continuing care to all relevant caregivers
Preparation of discharge records, prescriptions, and referral forms
Total time spent (in minutes): 41
Anticipated Discharge: Today
Subjective/Interval History
-
Date of Service: October 25, 2023
s/p EGD with erythema in antrum/duodenum
Objective Data
-
Labs:
Laboratory Results
10/25/23
05:34
WBC 7.6
Hgb 10.4 L
Hct 30.8 L
Plt Count 362
Sodium 135
Potassium 4.3
Chloride 105
Carbon Dioxide 24
BUN 12
Creatinine 1.3 H
Glucose 87
Calcium 9.0
Vital Signs:
Vital Signs
Temp Pulse Resp BP Pulse Ox
98.9 F 70 18 169/92 98
10/25/23 07:30 10/25/23 07:30 10/25/23 07:30 10/25/23 07:30 10/25/23 07:30
I&O
10/24/23 10/25/23 10/26/23
06:59 06:59 06:59
Intake Total 3120 / 3120 480 / 480
Balance 3120 / 3120 480 / 480
Physical Exam
-
General: No Apparent Distress
HEENT: Normocephalic and Atraumatic
Respiratory: Negative Wheezes or Rales
Cardiac: Regular Rhythm and S1/S2
GI: Soft and Nontender
Genito-urinary: No Costovertebral Tender
Musculoskeletal: No Edema
Neuro: AO x 3
Hematologic / Lymphatic: No Lymphadenopathy
Psych: Calm
Data Reviewed
-
Total Time Spent with Patient (in minutes): 41
Labs: Labs Reviewed by me
--- NOTE | 2023-10-25 10:51 | W.DS.TRANS ---
DC Summary - [employer]
-
Discharge Instructions:
Discharge Diagnosis/Procedures weight loss, early satiety, felt to be related
to MJ use.
Diet Regular,As tolerated
Activity As tolerated
Bathing Restrictions None
Instructions:
Stand-Alone Forms:
Changes to Home Medications: No
Discharge Medications:
DC Medications w/original date entered in [facility]
amlodipine 5 mg tablet (Norvasc) 5 mg PO DAILY Blood Pressure 10/22/23
cetirizine 10 mg tablet (Zyrtec) 10 mg PO QPM Allergies 10/22/23
clonidine HCl 0.1 mg tablet 0.1 mg PO HS Blood Pressure 10/22/23
hydrochlorothiazide 25 mg tablet 25 mg PO QPM Blood Pressure 10/22/23
losartan 100 mg tablet 100 mg PO DAILY Blood Pressure 10/22/23
metoprolol tartrate 25 mg tablet 25 mg PO BID Blood Pressure 10/22/23
rosuvastatin 10 mg tablet (Crestor) 10 mg PO QPM High Cholesterol 10/22/23
ondansetron 4 mg disintegrating tablet 4 mg PO Q8H PRN nausea and vomiting #30 tabs 10/25/23
pantoprazole 40 mg tablet,delayed release 40 mg PO DAILY #30 tabs 10/25/23
sucralfate 100 mg/mL oral suspension 1 g (10 mL) PO ACHS #1,200 mL 10/25/23
Home Medication Changes
Pending Results: No
Total time spent discharging patient (in min): 42
--- NOTE | 2023-10-25 11:04 | CM ---
Met with pt and at bedside
Pt for d/c today
Will have ride home with her
Plan - d/c to home no needs
== END 2023-10-25 11:44 | disposition home or self-care (01) ==
LOC: 3 WEST ACU 06:40
PROVIDERS: Emergency Medicine; ADMITTING PHYSICIAN Student in an Organized Health Care Education/Training Program; ATTENDING PHYSICIAN Internal Medicine; CONSULT PHYSICIAN Internal Medicine Gastroenterology; EMERGENCY PHYSICIAN Student in an Organized Health Care Education/Training Program; FAMILY PHYSICIAN Family Medicine; OTHER PHYSICIAN Psychiatry & Neurology Psychiatry
DX: R63.4 Abnormal weight loss (principal); R53.1 Weakness; R25.1 Tremor, unspecified; R68.81 Early satiety; F12.90 Cannabis use, unspecified, uncomplicated; Z68.31 Body mass index [BMI] 31.0-31.9, adult; R12 Heartburn; N18.32 Chronic kidney disease, stage 3b; I12.9 Hypertensive chronic kidney disease with stage 1 through stage 4 chronic kidney disease, or unspecified chronic kidney disease; J45.909 Unspecified asthma, uncomplicated; R07.9 Chest pain, unspecified; N17.9 Acute kidney failure, unspecified; R41.82 Altered mental status, unspecified; E78.5 Hyperlipidemia, unspecified; E66.9 Obesity, unspecified; F17.290 Nicotine dependence, other tobacco product, uncomplicated; K31.89 Other diseases of stomach and duodenum; D75.839 Thrombocytosis, unspecified; R62.7 Adult failure to thrive; R11.0 Nausea; D63.8 Anemia in other chronic diseases classified elsewhere; Z80.0 Family history of malignant neoplasm of digestive organs; Z87.442 Personal history of urinary calculi; Z82.49 Family history of ischemic heart disease and other diseases of the circulatory system
CPT/HCPCS: 43239; 88305; 70450; 71260; 74177; 80048; 80053; 80306; 81003; 81015; 82306; 82607; 82728; 82746; 82962; 83540; 83550; 83735; 84443; 84484; 85025; 85027; 87086; 88342; 93005; 99285; 99406; G0378; Q9967

== ENCOUNTER → 2024-06-14 09:42 | Outpatient (REF) | payer BC, SELFPAY | LOC: HWWDC 09:42 | PROVIDERS: ATTENDING PHYSICIAN Obstetrics & Gynecology Gynecology; FAMILY PHYSICIAN Family Medicine | DX: Z12.31 Encounter for screening mammogram for malignant neoplasm of breast (principal) | CPT/HCPCS: 77063; 77067 ==

== ENCOUNTER 2024-08-10 08:06 | Outpatient (REF) | payer BC, SELFPAY ==
[2024-08-10] VITALS (10 sets, daily range): BP systolic 56–163; BP diastolic 60–112
[2024-08-10 08:49] LABS: % Basophils 0.3 % (0-2); % Eosinophils 3.2 % (0-6); % Immature Granulocytes 0.6 % (0-0.5); % Lymphocytes 24.1 % (20.5-51.1); % Neutrophils 60.8 % (42.2-75.2); Absolute Eosinophils 0.3 10^3/uL (0-0.7); Absolute Immature Granulocytes 0.1 10^3/uL (0-0.05); Absolute Lymphocytes 2.5 10^3/uL (1.2-3.4); Absolute Monocytes 1.1 10^3/uL (0.1-0.6); Absolute Neutrophils 6.3 10^3/uL (1.4-6.5); Hematocrit 33.3 % (37.0-47.0); Hemoglobin 10.5 g/dL (12.0-16.0); Mean Corp Hgb Conc. 31.5 g/dL (33.0-37.0); Mean Corpuscular Hgb 26.2 pg (27.0-31.0); Nucleated Red Blood Cells % 0 %; Platelet Count 368 10^3/uL (130-400); Red Blood Cell Count 4.01 10^6/uL (4.20-5.40); Red Cell Dist. Width 14.6 % (11.5-14.5); White Blood Cell Count 10.3 10^3/uL (4.8-10.8)
[2024-08-10 09:04] LABS: Blood Urea Nitrogen 16 mg/dl (7-17); Calcium 8.5 mg/dl (8.4-10.2); Carbon Dioxide 29 mmol/L (22-30); Chloride 102 mmol/L (98-107); Glucose 89 mg/dl (70-99); Sodium 139 mmol/L (135-145)
[2024-08-10 09:06] LABS: INR 0.97; PT 13.4 Sec (11.4-14.6)
[2024-08-10 09:30] LABS: Estimated Creatinine Clearance 65 ml/min; eGFR 55.15
[2024-08-10] MEDS: TORADOL 30 MG IV (10:40)
--- NOTE | 2024-08-10 12:01 | W.PN.UPDATE ---
Update Note
Progress Note Update
Immediately after the renal biopsy, the patient reported 8/10 abdominal pain which radiated to her midabdomen. She was also complaining of urethral pain. Toradol 30 mg IV was given, and her pain gradually improved. There was no perirenal hematoma on
postprocedure US imaging.
She did not feel like she needed to urinate right after biopsy. However, she just passed bloody urine, approximately 2 hours after the biopsy. Her HR is 61, BP 155/96.
Given stable vitals and 2 hour period between biopsy and urination, I do not suspect arterial bleeding into collecting system - most likely a venous source. Will check hemoglobin levels to estimate quantity of bleeding. No indication for arteriogram
at this point.
[2024-08-10] MEDS: TYLENOL 650 MG PO (12:30)
[2024-08-10] MEDS: ROXICODONE 5 MG PO (13:22)
[2024-08-10 14:28] LABS: Hematocrit 31.8 % (37.0-47.0); Hemoglobin 10.5 g/dL (12.0-16.0)
--- NOTE | 2024-08-10 16:05 | W.PN.UPDATE ---
Update Note
Progress Note Update
Patient is having continued pain, which she rates as 8/10. One episode of hematuria, has not had to urinate since.
She has remained hemodynamically stable, and hemoglobin is unchanged compared to this morning.
CT a/p obtained due to continued severe pain. CT shows small subcapsular hematoma on left side, 6 mm in greatest thickness, and blood in the urinary bladder.
Reassured her that subcapsular hematomas tend to stop bleeding on their own, although it will likely be painful due to stretching of the capsule. Her hematuria should also improve over the next few days.
OK for discharge from my perspective. She understands the need to call the IR physician pilot control operator helper, or to return to ER with any worsening pain, or with any other concerns.
Provided prescription for oxycodone tabs for severe pain, advised her only to take them if she really needs them.
== END 2024-08-10 16:03 | disposition home or self-care (01) ==
LOC: RADI 08:06
PROVIDERS: Radiology Vascular & Interventional Radiology; ATTENDING PHYSICIAN Specialist; FAMILY PHYSICIAN Family Medicine; OTHER PHYSICIAN Physician Assistant
DX: I12.9 Hypertensive chronic kidney disease with stage 1 through stage 4 chronic kidney disease, or unspecified chronic kidney disease (principal); N18.30 Chronic kidney disease, stage 3 unspecified
CPT/HCPCS: 36415; 50200; 74176; 76942; 80048; 85014; 85018; 85025; 85610; 88305; 99152; 99153

== ENCOUNTER 2024-08-14 13:33 | Emergency (ER) | payer BC, SELFPAY ==
[2024-08-14 13:58] VITALS: BP 170/100
--- NOTE | 2024-08-14 13:59 | ED.GENMED ---
ED Provider Triage
<Wilfrid Nixon PA-C - Last Filed: 08/14/24 14:16>
-
Patient seen by provider in Triage?: Seen in Triage
48-year-old female presents with difficulty urinating and hematuria. She notes a full bladder sensation with the inability to void. She had a kidney biopsy last week of her left kidney secondary to abnormal kidney functions and the blood work.
She is followed by nephrology here.
Physical exam
General: Well-appearing female
Respiratory: Resting comfortably no respiratory distress
Neurologic exam: Alert conversing appropriately normal gait
Vital signs stable through triage. Bladder scan shows 560 mL of urine in the bladder. Recommend room placement for potential Hicks catheter. Question possible clot retention
Patient seen by healthcare provider at triage. She warrants further evaluation.
History of Present Illness
<Wilfrid Nixon PA-C - Last Filed: 08/14/24 14:16>
General
Chief Complaint: Urinary Symptoms
Time Seen by Provider: 08/14/24 14:47
<Brandon Acuna MD - Last Filed: 08/14/24 18:16>
General
Source: patient
Exam Limitations: none
History of Present Illness
History of Present Illness:
Patient with a renal biopsy left kidney 4 days ago. Since then has had trouble urinating, hematuria, urgency. Has bladder fullness. Has passed a few clots. No fever chills. No unusual flank or back pain.
Past History
<Wilfrid Nixon PA-C - Last Filed: 08/14/24 14:16>
Past History
ED Past Medical History: Asthma, HTN and Other (kidney stones)
ED Past Surgical History: Other (hysterectomy)
Patient has exhibited threatening behavior?: No
Social History
Tobacco: Non-smoker
Alcohol: None
Personal: Single
Living: with family
Employment: Not employed
Family History
Family History: Hypertension
Review of Systems
<Brandon Acuna MD - Last Filed: 08/14/24 18:16>
Review of Systems
All Other Systems: Not applicable
Constitutional: Denies fever or chills
: Denies flank pain
Phy Exam
<Brandon Acuna MD - Last Filed: 08/14/24 18:16>
Physical Exam
Physical Exam:
GENERAL: Alert and oriented in no apparent distress
EYE: Orbits normal.
NECK: Supple
CARDIAC: Regular rate and rhythm without any obvious murmurs.
LUNGS: Clear breath sounds,normal
ABDOMEN: Soft. Some suprapubic fullness and mild tenderness. No rebound or guarding no mass or hernia. No true CVA tenderness. No erythema warmth or swelling at the biopsy site.
NEUROLOGICAL: Alert and oriented , grossly non-focal
SKIN: Warm and dry, no rash or lesion, no discoloration, skin intact.
MUSCULOSKELETAL: No edema,no deformity.Good color
PSYCH: Normal and appropriate interaction.
Course
<Wilfrid Nixon PA-C - Last Filed: 08/14/24 14:16>
Orders/Labs/Results
Orders:
Orders
08/14/24 13:58
Bladder Scan- Treatment ONCE
08/14/24 14:03
Complete Blood Count/With Diff Urgent
Comprehensive Metabolic Panel Urgent
08/14/24 14:58
CBI- Treatment PRN
Solution: nss
Irrigate to Clear?: Yes
08/14/24 17:39
Urinalysis Reflex To Culture Urgent
Date Specimen was Collected: 08/14/24
Time Specimen was Collected: 15:31
Urine Microscopic Reflex Cult Urgent
Urine Culture Urgent
RONA Source: U
Specimen Description:
Date Specimen was Collected: 08/14/24
Time Specimen was Collected: 15:31
08/14/24 18:11
Cefdinir [Omnicef] 300 mg PO NOW STA
Abnormal Lab Results
08/14/24 08/14/24
14:03 17:39
RBC 4.04 L 10^6/uL
(4.20-5.40)
Hgb 10.8 L g/dL
(12.0-16.0)
Hct 33.7 L %
(37.0-47.0)
MCH 26.7 L pg
(27.0-31.0)
MCHC 32.0 L g/dL
(33.0-37.0)
RDW 14.6 H %
(11.5-14.5)
Plt Count 411 H 10^3/uL
(130-400)
Abs Immat Gran (auto) 0.1 H 10^3/uL
(0-0.05)
Absolute Neuts (auto) 6.6 H 10^3/uL
(1.4-6.5)
Absolute Monos (auto) 1.0 H 10^3/uL
(0.1-0.6)
Immature Gran % 0.6 H %
(0-0.5)
Lymphocytes % 20.1 L %
(20.5-51.1)
Monocytes % 9.9 H %
(1.7-9.3)
Creatinine 1.3 H mg/dL
(0.6-1.0)
Total Protein 9.0 H g/dl
(6.3-8.2)
Ur Occult Blood Reflex 4+ A
(Negative)
Urine Nitrite (Reflex) Positive A
(Negative)
Leukocyte Esterase Rfl 2+ A
(Negative)
Urine RBC 3-6 A /HPF
(0-2)
Urine Bacteria (Reflex) Many A
(Negative)
Urine Albumin (Reflex) 4+ A
(Neg - Trace)
08/14/24 14:03
08/14/24 14:03
Vital Signs
Initial and Last Documented VS:
Initial Vital Signs
Temp Pulse Resp BP Pulse Ox
99.0 F 76 16 170/100 98
08/14/24 13:58 08/14/24 13:58 08/14/24 13:58 08/14/24 13:58 08/14/24 13:58
Last Documented Vital Signs
Temp Pulse Resp BP Pulse Ox
99.0 F 71 16 121/73 98
08/14/24 13:58 08/14/24 17:08 08/14/24 17:08 08/14/24 17:08 08/14/24 17:08
<Brandon Acuna MD - Last Filed: 08/14/24 18:16>
Orders/Labs/Results
Orders:
Orders
08/14/24 13:58
Bladder Scan- Treatment ONCE
08/14/24 14:03
Complete Blood Count/With Diff Urgent
Comprehensive Metabolic Panel Urgent
08/14/24 14:58
CBI- Treatment PRN
Solution: nss
Irrigate to Clear?: Yes
08/14/24 17:39
Urinalysis Reflex To Culture Urgent
Date Specimen was Collected: 08/14/24
Time Specimen was Collected: 15:31
Urine Microscopic Reflex Cult Urgent
Urine Culture Urgent
RONA Source: U
Specimen Description:
Date Specimen was Collected: 08/14/24
Time Specimen was Collected: 15:31
08/14/24 18:11
Cefdinir [Omnicef] 300 mg PO NOW STA
Abnormal Lab Results
08/14/24 08/14/24
14:03 17:39
RBC 4.04 L 10^6/uL
(4.20-5.40)
Hgb 10.8 L g/dL
(12.0-16.0)
Hct 33.7 L %
(37.0-47.0)
MCH 26.7 L pg
(27.0-31.0)
MCHC 32.0 L g/dL
(33.0-37.0)
RDW 14.6 H %
(11.5-14.5)
Plt Count 411 H 10^3/uL
(130-400)
Abs Immat Gran (auto) 0.1 H 10^3/uL
(0-0.05)
Absolute Neuts (auto) 6.6 H 10^3/uL
(1.4-6.5)
Absolute Monos (auto) 1.0 H 10^3/uL
(0.1-0.6)
Immature Gran % 0.6 H %
(0-0.5)
Lymphocytes % 20.1 L %
(20.5-51.1)
Monocytes % 9.9 H %
(1.7-9.3)
Creatinine 1.3 H mg/dL
(0.6-1.0)
Total Protein 9.0 H g/dl
(6.3-8.2)
Ur Occult Blood Reflex 4+ A
(Negative)
Urine Nitrite (Reflex) Positive A
(Negative)
Leukocyte Esterase Rfl 2+ A
(Negative)
Urine RBC 3-6 A /HPF
(0-2)
Urine Bacteria (Reflex) Many A
(Negative)
Urine Albumin (Reflex) 4+ A
(Neg - Trace)
08/14/24 14:03
08/14/24 14:03
Vital Signs
Initial and Last Documented VS:
Initial Vital Signs
Temp Pulse Resp BP Pulse Ox
99.0 F 76 16 170/100 98
08/14/24 13:58 08/14/24 13:58 08/14/24 13:58 08/14/24 13:58 08/14/24 13:58
Last Documented Vital Signs
Temp Pulse Resp BP Pulse Ox
99.0 F 71 16 121/73 98
08/14/24 13:58 08/14/24 17:08 08/14/24 17:08 08/14/24 17:08 08/14/24 17:08
<Brandon Acuna MD - Last Filed: 08/14/24 18:16>
MDM/Problems Addressed
Differential Diagnosis Includes:
Patient likely describing urinary retention secondary to clot. Will place a three-way. Irrigate. CT scan. Labs are all stable.
<Brandon Acuna MD - Last Filed: 08/14/24 18:16>
*Pulse Oximetry
Patient hypoxic: no
*Critical Care Note
Total Time (30-74mins, 75-104mins- exclusive of procedures): Not Applicable
Data Reviewed
Review of Other/Old Records Reveals: Labs, Records, Operative Reports and Testing
<Brandon Acuna MD - Last Filed: 08/14/24 18:16>
Update Note
Update Note:
Patient seen by urology. Initially had about 3 to 400 cc of urine after passing a clot. Then attempted to recatheterized to clear out the bladder of clots. Still unable. Urology came and passed the catheter. Patient is clearly urinated since
then without issues. No systemic infectious symptoms however urine mildly positive. Will cover with antibiotics. Patient is anxious to leave. CT still pending. With no flank or back pain stable hemoglobin stable vital signs, feel CT scan is
okay to hold at this time.
ED Attending Note
<Wilfrid Nixon PA-C - Last Filed: 08/14/24 14:16>
-
Portions of this chart may have been created with voice recognition software.� Occasional wrong word or��sound alike� substitutions may have occurred due to the inherent limitations of voice recognition software.
Discharge Plan
Departure
Patient Disposition: Home (Routine Discharge)
Date of Disposition: 08/14/24
Time of Disposition: 18:13
Patient with high blood pressure during this ER visit?: No
Discharge Problem:
Bladder outlet obstruction, Secondary to clots, Hematuria/possible UTI
Instructions: Blood in the Urine (Hematuria), Adult (DC), BLOOD PRESSURE
Prescriptions:
New
cefdinir 300 mg capsule
300 mg PO BID 5 Days Qty: 10 0RF
fluconazole 150 mg tablet
150 mg PO DAILY Qty: 1 0RF
No Action
clonidine HCl 0.1 mg Tablet
0.1 mg PO HS
cetirizine [Zyrtec] 10 mg Tablet
10 mg PO QPM
Rx Instructions:
Robyn
amlodipine [Norvasc] 5 mg Tablet
5 mg PO DAILY
hydrochlorothiazide 25 mg Tablet
25 mg PO QPM
losartan 100 mg Tablet
100 mg PO DAILY
rosuvastatin [Crestor] 10 mg Tablet
10 mg PO QPM
sucralfate 100 mg/mL Suspension
1 g PO ACHS Qty: 1200 0RF
multivitamin Tablet
1 tab PO DAILY
dexamethasone 0.5 mg/5 mL Elixir
0.5 mg PO QTUTH
Rx Instructions:
2x/week
prednisolone acetate 1 % Drops,Suspension
1 drp OPHTHALMIC (EYE) BID
amitriptyline 10 mg Tablet
10 mg PO HS
esomeprazole magnesium 40 mg Capsule,Delayed Release(Dr/Ec)
40 mg PO DAILY
pseudoephedrine HCl [Sudafed] 30 mg Tablet
30 mg PO DAILYPRN PRN (Reason: allergies)
ipratropium bromide 42 mcg (0.06 %) [place],Non-Aerosol
2 spray INTRANASAL QID
metoprolol tartrate 25 mg Tablet
25 mg PO BID
Referrals:
Malinda Melgar MD [Family Provider] - Follow up in 2-3 days
Activity Restrictions/Additional Instructions:
Take antibiotics as directed
I gave you a prescription for the yeast infection. You can take it if you want but reasonable to hold off to see if you develop any symptoms before taking
Follow-up with your primary physician and any specialists that you are supposed to follow-up with after the biopsy
Return with recurrent obstruction, fever or chills back pain abdominal pain or any other concerning symptoms
It was sent to your pharmacy
Interventions
Interventions:
*Risk Screen - Suicide Last Done: 08/14/24 13:58
*General Assessment Last Done: 08/14/24 17:43
*Neglect/Abuse Screening Last Done: 08/14/24 13:58
ED- Fall Risk Assessment Last Done: 08/14/24 16:24
ED-Female Genitourinary Assessment Last Done: 08/14/24 16:24
Discharge Date and Time
Print Language: UKRAINIAN
[2024-08-14 14:29] LABS: % Basophils 0.5 % (0-2); % Eosinophils 3.5 % (0-6); % Immature Granulocytes 0.6 % (0-0.5); % Lymphocytes 20.1 % (20.5-51.1); % Monocytes 9.9 % (1.7-9.3); % Neutrophils 65.4 % (42.2-75.2); Absolute Basophils 0.1 10^3/uL (0-0.2); Absolute Eosinophils 0.4 10^3/uL (0-0.7); Absolute Immature Granulocytes 0.1 10^3/uL (0-0.05); Absolute Neutrophils 6.6 10^3/uL (1.4-6.5); Hematocrit 33.7 % (37.0-47.0); Hemoglobin 10.8 g/dL (12.0-16.0); Mean Corpuscular Hgb 26.7 pg (27.0-31.0); Mean Corpuscular Volume 83.4 fL (81.0-99.0); Mean Platelet Volume 10.3 fL (7.4-10.4); Nucleated Red Blood Cells % 0 %; Platelet Count 411 10^3/uL (130-400); Red Blood Cell Count 4.04 10^6/uL (4.20-5.40); Red Cell Dist. Width 14.6 % (11.5-14.5); White Blood Cell Count 10.2 10^3/uL (4.8-10.8)
[2024-08-14 14:57] LABS: ALT (SGPT) 15 U/L (0-35); AST (SGOT) 19 U/L (14-36); Albumin 4.5 g/dl (3.5-5.0); Alkaline Phosphatase 105 U/L (38-126); Calcium 8.7 mg/dl (8.4-10.2); Carbon Dioxide 30 mmol/L (22-30); Chloride 100 mmol/L (98-107); Glucose 99 mg/dl (70-99); Potassium 4.7 mmol/L (3.5-5.1); Sodium 138 mmol/L (135-145); Total Bilirubin 0.6 mg/dl (0.2-1.3)
[2024-08-14 15:03] LABS: Blood Urea Nitrogen 13 mg/dl (7-17)
[2024-08-14 17:08] VITALS: BP 121/73
[2024-08-14 17:59] LABS: Urine Albumin 4+ (Neg - Trace); Urine Bilirubin Negative (Negative); Urine Character Slightly Cloudy (Clear); Urine Color Amber; Urine Glucose Negative (Negative); Urine Ketone Negative (Negative); Urine Leukocyte 2+ (Negative); Urine Nitrite Positive (Negative); Urine Occult Blood 4+ (Negative); Urine Urobilinogen 1+ (Neg - 1+); Urine pH 6.5 (5.0-9.0)
[2024-08-14 18:06] LABS: Urine Bacteria Many (Negative); Urine Squamous Cell 0-2 /LPF (Few)
--- NOTE | 2024-08-14 18:16 | W.PN.URO.CBU ---
Today's Communication / Plan
-
home
Assessment / Plan
-
john place pt drained 100cc clot no other clots hand irrigated no clots filled bladder removed john pt voided to comletion home today increase fluids
Diagnosis
-
Date of Service: August 14, 2024
-
Patient Diagnosis:acute urinary clot retention post renal bx difficult john
Post Op Day:
Subjective
-
cannot void
Objective
-
Vital Signs
Temp Pulse Resp BP Pulse Ox
99.0 F 71 16 121/73 98
08/14/24 13:58 08/14/24 17:08 08/14/24 17:08 08/14/24 17:08 08/14/24 17:08
Intake and Output
08/13/24 08/14/24 08/15/24
06:59 06:59 06:59
Output Total 50 / 50
Balance -50 / -50
Output:
True Urine Output from CBI 50 / 50
Laboratory Results
08/14/24 14:03
08/14/24 14:03
Review of Systems
-
: Difficulty Voiding and Bleeding
Physical Exam
-
General - well developed, well nourished, no acute distress
Chest - clear bilaterally
Abdomen - soft, non-tender, positive bowel sounds, no CVAT, no incisional pain or distention
Genitalia - normal
Rectal - normal
Skin - warm & dry with no rash
Neuro - AOx3, no motor deficits
Extremities - no clubbing, no cyanosis, no edema
Incision - clean, dry
Dressing - clean, dry, intact
Care Review
Data Reviewed
Discussed with: Nursing
[2024-08-14] MEDS: OMNICEF 300 MG PO (18:23)
== END 2024-08-14 18:36 | disposition home or self-care (01) ==
LOC: EMR 13:33
PROVIDERS: Physician Assistant; EMERGENCY PHYSICIAN Emergency Medicine; FAMILY PHYSICIAN Family Medicine; OTHER PHYSICIAN Specialist
DX: N32.0 Bladder-neck obstruction (principal); N99.820 Postprocedural hemorrhage of a genitourinary system organ or structure following a genitourinary system procedure; Y84.8 Other medical procedures as the cause of abnormal reaction of the patient, or of later complication, without mention of misadventure at the time of the procedure; Y73.8 Miscellaneous gastroenterology and urology devices associated with adverse incidents, not elsewhere classified; I10 Essential (primary) hypertension; J45.909 Unspecified asthma, uncomplicated; Z87.442 Personal history of urinary calculi; Z90.710 Acquired absence of both cervix and uterus
CPT/HCPCS: 99283; 80053; 81003; 81015; 85025; 87077; 87086